=== PATIENT | female | born 1940 | race Caucasian/White ===

== ENCOUNTER 2019-02-08 18:57 | Emergency (ER) | payer MEDICARE, OTHER ==
[2019-02-08] MEDS ORDERED: SODIUM CHLORIDE 0.9% 1,000 ML IV STA ×2 (19:19→19:39)
--- NOTE | 2019-02-08 19:22 | ED ---
General Adult HPI - General Chief complaint: Neuro Symptoms/Deficit Stated complaint: Numbness L Arm Time Seen by Provider: 02/08/19 19:13 Source: patient, RN notes reviewed Mode of arrival: wheelchair Limitations: no limitations - History of Present Illness Initial comments: Patient is a pleasant 78-year-old female presenting to the emergency department with left arm paresthesias. Onset of symptoms was 5:15. Patient feels like her arm feels funny. Patient states it is also difficult to control and somewhat heavy. Patient had similar symptoms with her leg once previously however was only diagnosed with paresthesias. Patient denies any confusion. No speech problems. No involvement of the face or leg. Patient's friends are present who help provide history. - Related Data Home Medications Medication Instructions Recorded Confirmed Aspirin EC [Ecotrin Low Dose] 81 mg PO HS 02/08/19 02/08/19 Benazepril HCl 20 mg PO DAILY 02/08/19 02/08/19 DULoxetine HCL [Cymbalta] 30 mg PO DAILY 02/08/19 02/08/19 amLODIPine [Norvasc] 5 mg PO DAILY 02/08/19 02/08/19 hydrALAZINE HCL 25 mg PO HS 02/08/19 02/08/19 hydrALAZINE HCL 50 mg PO DAILY 02/08/19 02/08/19 traZODone HCL [Desyrel] 50 - 100 mg PO HS PRN 02/08/19 02/08/19 Allergies Allergy/AdvReac Type Severity Reaction Status Date / Time cephalexin [From Keflex] Allergy Unknown Verified 02/08/19 20:41 ciprofloxacin [From Cipro] Allergy Unknown Verified 02/08/19 20:41 sulfamethoxazole Allergy Unknown Verified 02/08/19 20:41 [From Bactrim] trimethoprim [From Bactrim] Allergy Unknown Verified 02/08/19 20:41 Review of Systems ROS Statement: Those systems with pertinent positive or pertinent negative responses have been documented in the HPI. ROS Other: All systems not noted in ROS Statement are negative. Constitutional: Denies: fever Eyes: Denies: eye pain ENT: Denies: ear pain Respiratory: Denies: cough Cardiovascular: Denies: chest pain Endocrine: Denies: fatigue Gastrointestinal: Denies: abdominal pain Genitourinary: Denies: dysuria Musculoskeletal: Denies: back pain Skin: Denies: rash Neurological: Reports: as per HPI. Denies: headache, confusion Past Medical History Past Medical History: Hyperlipidemia, Hypertension History of Any Multi-Drug Resistant Organisms: None Reported Past Surgical History: Adenoidectomy, Orthopedic Surgery, Tonsillectomy Additional Past Surgical History / Comment(s): gastric bypass Past Psychological History: Anxiety Smoking Status: Never smoker Past Alcohol Use History: None Reported Past Drug Use History: None Reported General Exam Limitations: no limitations, language barrier General appearance: in no apparent distress Head exam: Present: normocephalic Eye exam: Present: normal appearance, PERRL, EOMI ENT exam: Present: normal oropharynx Neck exam: Present: normal inspection Respiratory exam: Present: normal lung sounds bilaterally. Absent: chest wall tenderness Cardiovascular Exam: Present: regular rate, normal rhythm GI/Abdominal exam: Present: soft. Absent: tenderness, guarding Extremities exam: Present: normal inspection. Absent: tenderness Neurological exam: Present: alert, oriented X3, CN II-XII intact Expanded Neurological exam: Present: protecting the airway Patient oriented to: Present: person, place, time Speech: Present: fluid speech Cranial nerves: EOM's Intact: Normal, Facial Sensation: Normal Sensory exam: Upper Extremity Light Touch: Normal, Lower Extremity Light Touch: Normal Motor strength exam: RUE: 5, LUE: 4, RLE: 5, LLE: 5 Eye Response: (4) open spontaneously Motor Response: (6) obeys commands Verbal Response: (5) oriented Psychiatric exam: Present: normal affect, normal mood Skin exam: Present: normal color Course Vital Signs 02/08/19 02/08/19 02/08/19 19:03 19:15 19:30 Temperature 98.1 F 98.4 F 98.4 F Pulse Rate 70 70 68 Respiratory 18 18 20 Rate Blood Pressure 160/86 154/97 183/93 O2 Sat by Pulse 96 98 99 Oximetry 02/08/19 02/08/19 02/08/19 19:45 20:00 20:30 Temperature 98.4 F 98.1 F 98.7 F Pulse Rate 74 71 75 Respiratory 20 20 20 Rate Blood Pressure 183/93 184/96 195/94 O2 Sat by Pulse 99 98 99 Oximetry - Reevaluation(s) Reevaluation #1: 02/08/19 19:38 Case was discussed with Dr. Duran who does not feel patient is a TPA candidate secondary to low NIH. He does recommend aspirin and fluid bolus. EKG Findings - EKG Comments: EKG Findings:: Normal sinus rhythm 72. CA 168. QRS 72. QT 394. QTC 431. Normal axis. Normal QRS. No acute ST change. Medical Decision Making - Medical Decision Making Patient reevaluated and slightly improved however not resolved. Patient and friends are updated on results and plan. Secondary to no neurology present at our hospital. Case was crusted detail with Dr. Rodas at [facility], who will accept transfer. - Lab Data Result diagrams: 02/08/19 19:59 02/08/19 19:59 Lab Results 02/08/19 02/08/19 02/08/19 Range/Units 19:59 19:59 19:59 WBC 10.0 (3.8-10.6) k/uL RBC 4.20 (3.80-5.40) m/uL Hgb 13.2 (11.4-16.0) gm/dL Hct 41.4 (34.0-46.0) % MCV 98.5 (80.0-100.0) fL MCH 31.3 (25.0-35.0) pg MCHC 31.8 (31.0-37.0) g/dL RDW 13.9 (11.5-15.5) % Plt Count 218 (150-450) k/uL Neutrophils % 74 % Lymphocytes % 14 % Monocytes % 5 % Eosinophils % 3 % Basophils % 2 % Neutrophils # 7.4 (1.3-7.7) k/uL Lymphocytes # 1.4 (1.0-4.8) k/uL Monocytes # 0.5 (0-1.0) k/uL Eosinophils # 0.3 (0-0.7) k/uL Basophils # 0.2 (0-0.2) k/uL PT 9.5 (9.0-12.0) sec INR 0.9 (<1.2) APTT 21.7 L (22.0-30.0) sec Sodium 138 (137-145) mmol/L Potassium 4.3 (3.5-5.1) mmol/L Chloride 106 (98-107) mmol/L Carbon Dioxide 23 (22-30) mmol/L Anion Gap 9 mmol/L BUN 12 (7-17) mg/dL Creatinine 0.79 (0.52-1.04) mg/dL Est GFR (CKD-EPI)AfAm 84 (>60 ml/min/1.73 sqM) Est GFR (CKD-EPI)NonAf 73 (>60 ml/min/1.73 sqM) Glucose 119 H (74-99) mg/dL Calcium 9.4 (8.4-10.2) mg/dL Total Bilirubin 0.4 (0.2-1.3) mg/dL AST 23 (14-36) U/L ALT 15 (9-52) U/L Alkaline Phosphatase 71 (38-126) U/L Troponin I (0.000-0.034) ng/mL Total Protein 6.5 (6.3-8.2) g/dL Albumin 3.7 (3.5-5.0) g/dL 02/08/19 Range/Units 19:59 WBC (3.8-10.6) k/uL RBC (3.80-5.40) m/uL Hgb (11.4-16.0) gm/dL Hct (34.0-46.0) % MCV (80.0-100.0) fL MCH (25.0-35.0) pg MCHC (31.0-37.0) g/dL RDW (11.5-15.5) % Plt Count (150-450) k/uL Neutrophils % % Lymphocytes % % Monocytes % % Eosinophils % % Basophils % % Neutrophils # (1.3-7.7) k/uL Lymphocytes # (1.0-4.8) k/uL Monocytes # (0-1.0) k/uL Eosinophils # (0-0.7) k/uL Basophils # (0-0.2) k/uL PT (9.0-12.0) sec INR (<1.2) APTT (22.0-30.0) sec Sodium (137-145) mmol/L Potassium (3.5-5.1) mmol/L Chloride (98-107) mmol/L Carbon Dioxide (22-30) mmol/L Anion Gap mmol/L BUN (7-17) mg/dL Creatinine (0.52-1.04) mg/dL Est GFR (CKD-EPI)AfAm (>60 ml/min/1.73 sqM) Est GFR (CKD-EPI)NonAf (>60 ml/min/1.73 sqM) Glucose (74-99) mg/dL Calcium (8.4-10.2) mg/dL Total Bilirubin (0.2-1.3) mg/dL AST (14-36) U/L ALT (9-52) U/L Alkaline Phosphatase (38-126) U/L Troponin I <0.012 (0.000-0.034) ng/mL Total Protein (6.3-8.2) g/dL Albumin (3.5-5.0) g/dL - Radiology Data Radiology results: report reviewed (Computed tomography scan of the brain shows no acute intercranial hemorrhage. Left occipital lobe hypoattenuation appears chronic. 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 CT angiogram of the head and neck shows no occlusion.) Disposition Clinical Impression: Cerebrovascular accident (CVA) Disposition: OTHER INSTITUTION NOT DEFINED Is patient prescribed a controlled substance at d/c from ED?: No Referrals: Nonstaff,Physician [Primary Care Provider] - 1-2 days Time of Disposition: 21:00 - Out of Hospital Transfer - Req. Specs Out of Hospital Transfer - Requested Specifics: Other Emergency Center
--- NOTE | 2019-02-08 19:52 | CT ---
EXAMINATION TYPE: CT brain wo con for TPA DATE OF EXAM: 02/08/2019 COMPARISON: None. HISTORY: Left arm drift. TECHNIQUE: Axial CT images of the head without contrast. Bone windows and sagittal and coronal reform ats were reviewed. CT DLP: 1098.4 mGycm Automated exposure control for dose reduction was used. FINDINGS: No acute intracranial hemorrhage. Scattered periventricular and deep cortical white matter areas of l ow attenuation, likely representing sequela of chronic microangiopathy. Hypoattenuation of the left o ccipital lobe appears chronic, likely sequela of remote vascular injury. No acute loss of dozier-white matter differentiation to suggest large territorial infarction. Mild cerebral volume loss with appropriate size and morphology of the ventricular system. No extra-ax ial fluid collections or midline shift of structures. Patent basal cisterns. Note is made of fat in t he right choroid plexus. No depressed or displaced calvarial fracture. Intracranial vascular calcifications. Visualized parana isidoro sinuses and temporal bone structures are well aerated. The orbits and skull base are unremarkable . IMPRESSION: 1. No acute intracranial hemorrhage. 2. Left occipital lobe hypoattenuation appears chronic, favoring encephalomalacia from remote injury. Additional senescent changes including cerebral volume loss and sequela of chronic microangiopathy.
[2019-02-08 20:07] LABS: Basophils # (A) 0.2 k/uL (0-0.2); Basophils % (A) 2 %; Eosinophils # (A) 0.3 k/uL (0-0.7); Eosinophils % (A) 3 %; HCT 41.4 % (34.0-46.0); HGB 13.2 gm/dL (11.4-16.0); Lymphocytes # (A) 1.4 k/uL (1.0-4.8); Lymphocytes % (A) 14 %; MCH 31.3 pg (25.0-35.0); MCHC 31.8 g/dL (31.0-37.0); MCV 98.5 fL (80.0-100.0); Mean Platelet Volume 6.5; Monocytes # (A) 0.5 k/uL (0-1.0); Monocytes % (A) 5 %; Neutrophils # (A) 7.4 k/uL (1.3-7.7); Neutrophils % (A) 74 %; Platelet Count 218 k/uL (150-450); RDW 13.9 % (11.5-15.5)
[2019-02-08 20:15] LABS: Albumin 3.7 g/dL (3.5-5.0); Calcium 9.4 mg/dL (8.4-10.2); Potassium 4.3 mmol/L (3.5-5.1); Total Bilirubin 0.4 mg/dL (0.2-1.3); Total Protein 6.5 g/dL (6.3-8.2)
[2019-02-08 20:31] LABS: INR 0.9 (<1.2); Prothrombin Time 9.5 sec (9.0-12.0)
--- NOTE | 2019-02-08 20:31 | CT ---
EXAMINATION TYPE: CT angio head neck DATE OF EXAM: 02/08/2019 HISTORY: CVA COMPARISON: Noncontrast CT head same day. CT DLP: 646 mGycm. Automated Exposure Control for Dose Reduction was Utilized. TECHNIQUE: CTA scan of the neck is performed with IV Contrast, patient injected with 65cc mL of Isov ue 370, axial images are obtained, coronal and sagittal reformatted images are reviewed. Three-D francine nstructed images are created on an independent workstation and reviewed. FINDINGS: CTA NECK: Three-vessel arch. Calcified plaque at the left subclavian artery origin without significan t stenosis. Normal course and caliber of the right carotid artery. Mixed calcified and noncalcified p laque at the right carotid bifurcation extending into the proximal internal carotid artery without si gnificant stenosis. Normal course and caliber of the left common carotid artery. Calcified plaque at the left carotid bifurcation extending into the proximal left internal carotid artery without signifi cant stenosis. Vertebral arteries arise from the subclavian arteries; cervical vertebral arteries are patent. Dominant right cervical vertebral artery. CTA HEAD: Calcifications of the cavernous carotid arteries which are otherwise patent. Proximal middl e and anterior cerebral arteries are patent. Anterior communicating artery is visualized. Right poste rior communicating artery is visualized; left posterior communicating artery is not definitively seen . Right intradural vertebral artery is patent. Left vertebral artery primarily terminates as left poste rior inferior cerebellar artery with a hypoplastic left intradural vertebral artery. Basilar artery i s patent. Posterior cerebral arteries are patent. No aneurysm visualized. OTHER: Subcentimeter right thyroid nodule. IMPRESSION: No proximal vessel occlusion nor significant arterial stenosis.
[2019-02-08 20:41] LABS: Partial Thromboplastin Time 21.7 sec (22.0-30.0)
[2019-02-08] MEDS ORDERED: ASPIRIN 81 MG PO STA (20:59)
[2019-02-08 21:37] VITALS: RESP 18; TEMP 98.6
[2019-02-08 21:39] VITALS: BP 154/89; PULSE 67
--- NOTE | 2019-02-08 21:57 | XR ---
EXAMINATION TYPE: XR chest 2V DATE OF EXAM: 02/08/2019 COMPARISON: NONE HISTORY: Altered mental status TECHNIQUE: Frontal and lateral views of the chest are obtained. FINDINGS: Cardiomediastinal silhouette is within normal limits of size. Aortic vascular calcificatio ns. Diffuse interstitial prominence likely chronic. No focal airspace consolidation. No pleural effus ion or pneumothorax. Osseous structures are diffusely demineralized. IMPRESSION: No acute cardiopulmonary process.
== END 2019-02-08 21:46 | disposition short-term general hospital (02) ==
LOC: EC 18:57
DX: I63.9 Cerebral infarction, unspecified (principal); I10 Essential (primary) hypertension; F41.9 Anxiety disorder, unspecified; Z88.1 Allergy status to other antibiotic agents; Z88.2 Allergy status to sulfonamides; Z79.82 Long term (current) use of aspirin; Z79.899 Other long term (current) drug therapy
CPT/HCPCS: 36415; 93005; 80053; 84484; 85025; 85610; 85730; 71046; 70496; 70450; 70498; 99285; 96360; 96361; Q9967